=== PATIENT | male | born 1975 | race Two or more races ===

== ENCOUNTER 2024-01-26 13:38 | Emergency (ER) | payer OTHER ==
[~2024-01-26] VITALS: Ht 180.3 cm; Wt 108.0 kg
== END 2024-01-26 18:32 | disposition home or self-care (01) ==
LOC: ER 13:39
DX: S80.01XA Contusion of right knee, initial encounter (principal); V19.9XXA Pedal cyclist (driver) (passenger) injured in unspecified traffic accident, initial encounter; Y93.89 Activity, other specified; Y92.89 Other specified places as the place of occurrence of the external cause; Y99.9 Unspecified external cause status